=== PATIENT | male | born 1995 | race Caucasian/White ===

== ENCOUNTER 2017-10-02 03:37 | Emergency (ER) | payer SELFPAY ==
[~2017-10-02] VITALS: Ht 177.8 cm; Wt 113.1 kg
[2017-10-02 03:40] VITALS: BP 150/90
== END 2017-10-02 05:28 ==
LOC: ED 05:20
DX: S90.32XA Contusion of left foot, initial encounter (principal); X58.XXXA Exposure to other specified factors, initial encounter; Y93.89 Activity, other specified; Y92.009 Unspecified place in unspecified non-institutional (private) residence as the place of occurrence of the external cause; Y99.8 Other external cause status
CPT/HCPCS: 99284

== ENCOUNTER 2018-07-07 17:15 | Emergency (ER) | payer SELFPAY ==
[~2018-07-07] VITALS: Ht 177.8 cm; Wt 113.9 kg
[2018-07-07 18:11] VITALS: BP 132/65
--- NOTE | 2018-07-07 18:17 | NUR ---
AWAITING TECH FOR SPLINT
--- NOTE | 2018-07-07 18:47 | NUR ---
TECH AT BEDSIDE APPLYING SPLINT
--- NOTE | 2018-07-07 19:08 | NUR ---
ARM PUT IN SLING AFTER SPLINT APPLIED BY TECH. PT NOTED TO HAVE GOOD CMS.
== END 2018-07-07 19:11 | disposition home or self-care (01) ==
LOC: ED 18:45
DX: S62.325A Displaced fracture of shaft of fourth metacarpal bone, left hand, initial encounter for closed fracture (principal); W40.8XXA Explosion of other specified explosive materials, initial encounter; Y93.89 Activity, other specified; Y92.009 Unspecified place in unspecified non-institutional (private) residence as the place of occurrence of the external cause; Y99.8 Other external cause status
CPT/HCPCS: 29125; 93005; 99283